=== PATIENT | female | born 1935 | race Caucasian/White ===

== ENCOUNTER 2019-03-13 11:51 | Emergency (ER) | payer MEDICARE ==
[~2019-03-13] VITALS: Ht 162.6 cm; Wt 53.8 kg
[~2019-03-13 11:51] MED LIST: ASPI325T17 PO; IBUP200C8 PO
[2019-03-13 11:54] VITALS: BP 175/88
--- NOTE | 2019-03-13 12:06 | NUR ---
83 y/o female presents to ed with c/o BACK PAIN. PT STATES ITS HER MUSCLE AND IT JUST STARTED A FEW DAYS AGO. KRISTEL.
[2019-03-13] MEDS ORDERED: METHOCARBAMOL 750 MG TABLET ONE (12:17)
[2019-03-13] MEDS ORDERED: METHOCARBAMOL 750 MG TABLET PO ONE (12:30)
[2019-03-14] MEDS ORDERED: CHOL200052 PO (22:44)
== END 2019-03-13 13:50 | disposition home or self-care (01) ==
LOC: ED 13:20
DX: S32.009A Unspecified fracture of unspecified lumbar vertebra, initial encounter for closed fracture (principal); S33.5XXA Sprain of ligaments of lumbar spine, initial encounter; I10 Essential (primary) hypertension; X58.XXXA Exposure to other specified factors, initial encounter; Y93.89 Activity, other specified; Y92.89 Other specified places as the place of occurrence of the external cause; Y99.8 Other external cause status
CPT/HCPCS: 72110; 99283

== ENCOUNTER 2019-03-14 14:10 | Inpatient (IN) | payer MEDICARE ==
[~2019-03-14] VITALS: Ht 162.6 cm; Wt 58.8 kg
[2019-03-14] MEDS ORDERED: HYDROcodone/APAP 5/325 TABLET PO ONE (15:30)
[2019-03-14] MEDS ORDERED: HYDROcodone/APAP 5/325 TABLET ONE (15:34)
--- NOTE | 2019-03-14 15:46 | NUR ---
PT TO CT
[2019-03-14] MEDS ORDERED: SODIUM CHLORIDE FLUSH 10ML SYR IVF ONE (16:30)
[2019-03-14 16:46] LABS: BASOPHILS # (AUTO) 0.01 x10^3/uL (0-0.1); BASOPHILS % (AUTO) 0 % (0-1); EOSINOPHILS # (AUTO) 0.28 x10^3/uL (0-0.4); EOSINOPHILS % (AUTO) 4 % (1-7); LYMPHOCYTES # (AUTO) 1.22 x10^3/uL (1-3.4); LYMPHOCYTES % (AUTO) 16 % (22-44); MD NO; MEAN CORPUSCULAR HEMOGLOBIN 30.3 pg (27.0-34.8); MEAN CORPUSCULAR HGB CONC 32.3 g/dL (32.4-35.8); MEAN CORPUSCULAR VOLUME 93.7 fL (80-100); MEAN PLATELET VOLUME 6.4 fL (7.4-10.4); MONOCYTES # (AUTO) 0.67 x10^3/uL (0.2-0.8); MONOCYTES % (AUTO) 9 % (2-9); NEUTROPHILS # (AUTO) 5.37 x10^3/uL (1.8-6.8); NEUTROPHILS % (AUTO) 71 % (42-75); PLATELET COUNT 252 x10^3/uL (130-400); RED CELL DISTRIBUTION WIDTH 14.9 % (9.6-15.2)
--- NOTE | 2019-03-14 16:50 | NUR ---
pt resting in [facility] with daughter in law at bedside, awaiting recheck by
[2019-03-14 16:57] LABS: ALBUMIN 3.4 g/dL (3.4-5.0); ANION GAP 8 mmol/L (5-15); CHLORIDE 100 mmol/L (98-107); CREATININE 0.54 mg/dL (0.55-1.02)
[2019-03-14 17:50] LABS: CULTURE INDICATED? NO; MICROSCOPIC AUTO
--- NOTE | 2019-03-14 17:50 | NUR ---
pt to be admitted, awaiting bed assignment
[2019-03-14] MEDS ORDERED: BISACODYL 10 MG SUPP PR PRN (18:00)
[2019-03-14] MEDS ORDERED: POLYETHYLENE GLYCOL 17 GM PACKET PO PRN (18:00)
[2019-03-14] MEDS ORDERED: ACETAMINOPHEN 325 MG TABLET PO PRN (18:00)
[2019-03-14] MEDS ORDERED: PLEASE ENTER HEIGHT AND WEIGHT MC SCH (18:30)
--- NOTE | 2019-03-14 18:42 | NUR ---
pt resting in gurney on monitor, given crackers and repositioned. awaiting bed assignement
--- NOTE | 2019-03-14 18:59 | NUR ---
REPORT FROM NEENA SHEETS
--- NOTE | 2019-03-14 19:15 | NUR ---
REPORT TO FLOOR RN ALL QUESTIONS ADDRESSED PT READY FOR TRANSPORT TO FLOOR AT THIS TIME
[2019-03-14] MEDS: SODIUM CHLORIDE FLUSH 10ML SYR IVF SCH (21:00)
[2019-03-14 21:20] VITALS: BP 120/72
[2019-03-14] MEDS: HYDROcodone/APAP 5/325 TABLET PO PRN (21:52)
[2019-03-14] MEDS: LIDODERM 5% PATCH TD SCH (21:53)
[2019-03-14] MEDS ORDERED: CHOL200052 PO (22:44)
[2019-03-14] MEDS: LIDODERM REMOVE PATCH NOTE XX SCH (23:23)
[2019-03-15 01:33] VITALS: BP 137/81
[2019-03-15] MEDS: HYDROcodone/APAP 5/325 TABLET PO PRN (04:00)
[2019-03-15] MEDS: LIDODERM 5% PATCH TD SCH (07:25)
[2019-03-15 07:45] VITALS: BP 141/85
[2019-03-15] MEDS: SODIUM CHLORIDE FLUSH 10ML SYR IVF SCH ×2 (08:30→20:38)
[2019-03-15] MEDS: SENNA/DOCUSATE TABLET PO SCH (08:30)
[2019-03-15] MEDS: IBUPROFEN 200 MG TABLET PO PRN ×2 (11:22→20:36)
[2019-03-15 13:45] VITALS: BP 168/91
[2019-03-15 20:04] VITALS: BP 155/83
[2019-03-15] MEDS: METHOCARBAMOL 500 MG TABLET PO PRN (20:36)
[2019-03-16 01:21] VITALS: BP 134/83
[2019-03-16] MEDS: IBUPROFEN 200 MG TABLET PO PRN ×3 (02:31→14:39)
[2019-03-16 06:46] VITALS: BP 137/86
[2019-03-16] MEDS: LIDODERM REMOVE PATCH NOTE XX SCH (08:00)
[2019-03-16] MEDS: SENNA/DOCUSATE TABLET PO SCH (08:33)
[2019-03-16] MEDS: METHOCARBAMOL 500 MG TABLET PO PRN ×2 (08:38→17:22)
[2019-03-16] MEDS: SODIUM CHLORIDE FLUSH 10ML SYR IVF SCH (08:41)
[2019-03-16] MEDS ORDERED: MAGNESIUM CITRATE 300ML ORAL SOL ONE (12:54)
[2019-03-16 13:25] VITALS: BP 120/79
[2019-03-16] MEDS ORDERED: MAGNESIUM CITRATE 300ML ORAL SOL PO ONE ×2 (14:00→16:30)
[2019-03-16] MEDS: LIDODERM 5% PATCH TD SCH (14:41)
[2019-03-16 17:30] VITALS: BP 120/78
[2019-03-16] MEDS ORDERED: METH500T7 PO (17:40)
== END 2019-03-16 17:45 | disposition home or self-care (01) | DRG 543 ==
LOC: ED 14:46 → EDIP 17:55 → 4NE 19:22
PROVIDERS: ADMIT Hospitalist; ATTEND Hospitalist
DX: M80.88XA Other osteoporosis with current pathological fracture, vertebra(e), initial encounter for fracture (principal); E87.1 Hypo-osmolality and hyponatremia; I10 Essential (primary) hypertension; Z96.642 Presence of left artificial hip joint; R51 Headache; Z66 Do not resuscitate; Z87.891 Personal history of nicotine dependence; Z90.49 Acquired absence of other specified parts of digestive tract; Z90.710 Acquired absence of both cervix and uterus; Z79.82 Long term (current) use of aspirin; Z79.899 Other long term (current) drug therapy; Z88.0 Allergy status to penicillin; Z91.81 History of falling
CPT/HCPCS: 36415; 71250; 74018; 80048; 81001; 82040; 85025; 99285; G0378

== ENCOUNTER → 2020-08-01 | Outpatient (CLI) | payer MEDICARE ==
[~2020-08-01] MED LIST changes: +CHOL200052 PO; +METH-639 PO; +VISIPAQUE 320 MG/ML, 150ML BOTTLE ONE
== END | disposition home or self-care (01) ==
LOC: CVU 09:42
PROVIDERS: ATTEND Internal Medicine Cardiovascular Disease
DX: I65.23 Occlusion and stenosis of bilateral carotid arteries (principal); K57.30 Diverticulosis of large intestine without perforation or abscess without bleeding; I77.810 Thoracic aortic ectasia; M81.0 Age-related osteoporosis without current pathological fracture; M43.8X6 Other specified deforming dorsopathies, lumbar region; I70.0 Atherosclerosis of aorta; M54.5 Low back pain; I35.0 Nonrheumatic aortic (valve) stenosis; R01.1 Cardiac murmur, unspecified
CPT/HCPCS: 71275; 74174; 93880; Q9967

== ENCOUNTER → 2020-09-26 | Outpatient (CLI) | payer MEDICARE ==
[~2020-09-26] MED LIST changes: +ACET325T26 PO; +ASPI81TA45 PO; +CHOL10003 PO; -VISIPAQUE 320 MG/ML, 150ML BOTTLE ONE
== END | disposition home or self-care (01) ==
LOC: CVU 14:27
PROVIDERS: ATTEND Internal Medicine Cardiovascular Disease
DX: I08.8 Other rheumatic multiple valve diseases (principal); I48.91 Unspecified atrial fibrillation; Z95.2 Presence of prosthetic heart valve
CPT/HCPCS: 93306; 93356